=== PATIENT | male | born 1940 | race African-American/Black ===

== ENCOUNTER 2016-11-13 17:32 | Emergency (ER) | payer MEDICARE, MEDICAID ==
[~2016-11-13] VITALS: Ht 175.3 cm; Wt 78.0 kg
[~2016-11-13 17:32] MED LIST: ACET-3161 GT; AMIT25TA9 PO; ASPI-1159 PO; ATOR-2 PO; BUSP10TA3 PO; CILO100T PO; DICL75TA5 PO; FINA5TAB11 PO; TRIA1CAP6 PO
[2016-11-13 20:30] VITALS: BP 147/84
== END 2016-11-13 20:41 | disposition home or self-care (01) ==
LOC: ER 18:01
DX: J44.9 Chronic obstructive pulmonary disease, unspecified (principal); R06.00 Dyspnea, unspecified
CPT/HCPCS: 71010; 99283; 99284

== ENCOUNTER → 2021-08-01 | Outpatient (CLI) | payer MEDICARE, MEDICAID ==
[~2021-08-01] MED LIST changes: -ASPI-1159 PO; +ASPI-1497 PO
[2021-08-01 12:25] LABS: BG BASE EXCESS 3.4 mmol/L (-2.0-2.0); BG CARBOXYHEMOGLOBIN 1.5 % (0.5-1.5); BG DEOXYHEMOGLOBIN 18.3 % (0.0-5.0); BG FRACTION INSPIRED OXYGEN 21; BG HCO3 ACT 28.2 mmol/L (22.0-26.0); BG METHEMOGLOBIN 0.3 % (0.0-1.5); BG OXYGEN SATURATION 81.4 % (92.0-98.5); BG OXYHEMOGLOBIN 79.9 % (94.0-97.0); BG PH 7.434 (7.350-7.450); BG PO2 44.8 mmHg (75.0-100.0); BG TOTAL HEMOGLOBIN 17.8 g/dL (12.0-18.0); BG VENT MODE ROOM AIR
== END | disposition home or self-care (01) ==
LOC: US 10:34
PROVIDERS: ATTEND Internal Medicine Pulmonary Disease
DX: M79.604 Pain in right leg (principal); M79.605 Pain in left leg; M79.7 Fibromyalgia
CPT/HCPCS: 36600; 82375; 82805; 93970